=== PATIENT | male | born 1985 | race Caucasian/White ===

== ENCOUNTER 2021-05-17 11:34 | Emergency (ER) | payer OTHER ==
--- NOTE | 2021-05-17 12:02 | XRAY Report ---
PROCEDURE: Ankle 3 View RT INDICATIONS: Trauma TECHNIQUE: 3 views of the ankle were acquired. COMPARISON: None FINDINGS: Bones: There are small avulsion fracture fragments seen distal to the medial malleolus. The donor sit e appears to be the medial aspect of the talus. Intra-articular fragments are seen. Ankle mortise is normally aligned. The talar dome demonstrates an unremarkable appearance. No suspicious bony lesi ons. Soft tissues: There is generalized soft tissue swelling. IMPRESSION: Multiple fracture fragments are seen distal to the medial malleolus, which appear to be from the medial aspect of the talus. Please consider a dedicated CT study for further evaluation. Reviewed by: Brice Palomo MD on 05/17/2021 11:01 AM JAYLENE Approved by: Brice Palomo MD on 05/17/2021 11:01 AM JAYLENE Station ID: [id number]
[2021-05-17] MEDS ORDERED: oxyCODONE 5 MG TABLET PO STA (12:24)
--- NOTE | 2021-05-17 12:56 | CT Report ---
PROCEDURE: LOWER EXTREMITY WO - RT INDICATIONS: R ankle comminuted fracture TECHNIQUE: Noncontrast 3 mm axial sections acquired of the right ankle, with coronal and sagittal reformats. COMPARISON: Correlation is made with the ankle plain films performed earlier in the day FINDINGS: Image quality: Excellent. Bones: There is a comminuted fracture seen involving the medial aspect of the talus, with mild impac tion also seen. Tiny intra-articular fragments can be seen, as on series 6 images 60 through 64. There may be tiny avulsion fracture fragments off of the distal tip of the medial malleolus as well. The talar dome is intact. The lateral malleolus is normal. The posterior malleolus is normal. No suspicious lytic or blastic lesions are seen. Soft tissues: Associated soft tissue swelling is seen. IMPRESSION: Comminuted fractures with numerous fragments seen involving the medial aspect of the talus, with impa cted fracture fragments. Tiny intra-articular fragments are seen. Potential minimal avulsion fracture fragments seen of the medial malleolus. Reviewed by: Brice Palomo MD on 05/17/2021 11:54 AM JAYLENE Approved by: Brice Palomo MD on 05/17/2021 11:54 AM JAYLENE Station ID: [id number]
--- NOTE | 2021-05-17 12:58 | ED Physician Documentation ---
PD HPI LOWER EXT INJURY - Stated complaint Stated Complaint: RT ANKLE INJ - Chief complaint Chief Complaint: Trauma Ext - History obtained from History obtained from: Patient (He injured his ankle yesterday while playing kickball. He is not able to walk or bear weight on it. No other injuries. He is active duty in the [employer].) Review of Systems Constitutional: reports: Reviewed and negative Eyes: reports: Reviewed and negative Ears: reports: Reviewed and negative PD PAST MEDICAL HISTORY - Present Medications Home Medications: Ambulatory Orders Medication Instructions Recorded Confirmed HYDROcod/ACETAM 5/325 [[place] 5/325] 1 - 2 tab PO Q6H PRN #15 tablet 05/17/21 - Allergies Allergies/Adverse Reactions: Allergies Allergy/AdvReac Type Severity Reaction Status Date / Time No Known Drug Allergies Allergy Verified 05/17/21 11:41 PD ED PE NORMAL - Vitals Vital signs reviewed: Yes - General General: Alert and oriented X 3, No acute distress - Extremities Extremities: Other (Tender over both malleoli of the right ankle. No proximal fibular tenderness. The entirety of the ankle is swollen and ecchymotic.) - Neuro Neuro: Alert and oriented X 3, Normal speech Results - Vitals Vitals: Vital Signs - 24 hr 05/17/21 05/17/21 11:41 13:27 Temperature 36.5 C 36.8 C Heart Rate 66 70 Respiratory 16 18 Rate Blood Pressure 126/73 139/84 H O2 Saturation 98 96 Oxygen O2 Source Room air PD MEDICAL DECISION MAKING - ED course ED course: Three-view x-ray of the right ankle interpreted contemporaneously by me shows fracture fragments distal to medial malleolus, likely from the medial aspect of the talus A CT was recommended and this is done with findings of comminuted fractures of numerous fragments involving the medial aspect of the talus and potentially a minimal avulsion fracture of the medial malleolus. He was placed in a short leg posterior splint by the tech made of fiberglass and up on crutches. Advised nonweightbearing until follow-up with [place] [facility]. Given a copy of imaging on CD to aid in follow-up. Departure - Departure Disposition: Home, Self Care Condition: Good Record reviewed to determine appropriate education?: Yes Instructions: ED Fx Ankle General Prescriptions: HYDROcod/ACETAM 5/325 [[place] 5/325] 1 - 2 tab PO Q6H PRN #15 tablet PRN Reason: Pain Comments: You are seen today for a talus fracture on the right. Keep the splint on and dry [place] for an appointment. Do not walk or bear weight on the right leg until cleared by them to do so. Forms: Activity restrictions
[2021-05-17 13:28] VITALS: BP 139/84
== END 2021-05-17 13:45 | disposition home or self-care (01) ==
LOC: ED 11:34
DX: S92.151A Displaced avulsion fracture (chip fracture) of right talus, initial encounter for closed fracture (principal); X50.1XXA Overexertion from prolonged static or awkward postures, initial encounter; Y93.79 Activity, other specified sports and athletics
CPT/HCPCS: 29515; 73610; 73700; 99283; 99284; A9270

== ENCOUNTER 2021-05-27 16:34 | Outpatient (CLI) | payer OTHER ==
--- NOTE | 2021-05-27 16:26 | XRAY Report ---
PROCEDURE: Ankle 3 View RT INDICATIONS: DISPLACED AVULSION FX OF R TALUS TECHNIQUE: 3 views of the ankle were acquired. COMPARISON: None FINDINGS: Bones: No fractures or dislocations. Ankle mortise is normally aligned. No suspicious bony lesions . Soft tissues: No tibiotalar joint effusion. Achilles tendon appears normal. IMPRESSION: Normal right ankle Reviewed by: Chava Maki on 05/27/2021 4:25 PM PDT Approved by: Chava Maki on 05/27/2021 4:25 PM PDT Station ID: [id number]
== END 2021-05-27 23:59 | disposition home or self-care (01) ==
LOC: DI.N 16:34
PROVIDERS: ATTEND Orthopaedic Surgery
DX: S92.151A Displaced avulsion fracture (chip fracture) of right talus, initial encounter for closed fracture (principal)

== ENCOUNTER → 2021-06-28 | Outpatient (CLI) | payer OTHER ==
--- NOTE | 2021-06-28 14:45 | XRAY Report ---
PROCEDURE: Ankle 3 View RT INDICATIONS: DISPLACED AVULSION FX OF R TALUS TECHNIQUE: 3 views of the ankle were acquired. COMPARISON: 05/27/2021 and 05/17/2021 FINDINGS: Bones: Small calcifications adjacent to the medial margin of the talus stable compared to prior exami nations. Ankle mortise is normally aligned. No suspicious bony lesions. Soft tissues: No tibiotalar joint effusion. Achilles tendon appears normal. IMPRESSION: Small calcifications adjacent to the medial margin of the talus which could represent he terotopic soft tissue calcifications or small avulsion injury. Findings stable compared to prior exam inations. Reviewed by: Yola Herrera MD, PhD on 06/28/2021 2:44 PM PDT Approved by: Yola Herrera MD, PhD on 06/28/2021 2:44 PM PDT Station ID: [id number]
== END ==
LOC: DI.N 07:45
PROVIDERS: ATTEND Orthopaedic Surgery
DX: S92.151A Displaced avulsion fracture (chip fracture) of right talus, initial encounter for closed fracture (principal)